=== PATIENT | male | born 1950 | race Caucasian/White ===

== ENCOUNTER 2021-04-10 10:24 | Inpatient (IN) | payer OTHER ==
[~2021-04-10] VITALS: Ht 182.9 cm; Wt 80.1 kg
[~2021-04-10 10:24] MED LIST: AUGMENTIN 875875 MG PO; PREDNISONE20 M1 PO; TESSALON PERLE100 M1 PO; VICODIN 500 MG-1 TAB PO
[2021-04-10 10:32] VITALS: BP 121/69
[2021-04-10 11:29] LABS: HEMATOCRIT 43.3 % (42.0-52.0); LYMPH % 20.8 % (27.0-41.0); MEAN CELL VOLUME 88.4 fl (80.0-94.0); MEAN CORPUSCULAR HGB 30.2 pg (27.0-31.0); MEAN CORPUSCULAR HGB CONC 34.2 g/dl (33.0-37.0); MEAN PLATELET VOLUME 9.9 fl (9.6-12.3); MONO # 0.7 10*3/uL (0.1-1.0); MONO % 13.9 % (3.0-9.0); NEUT # 3.2 10*3/uL (2.3-7.9); NEUT % 64.9 % (47.0-73.0); PLATELET COUNT AUTOMATED 152 10*3/uL (130-400); RED CELL DISTRI WIDTH 13.7 % (0-14.5); WHITE BLOOD COUNT 4.9 10*3/uL (4.8-10.8)
[2021-04-10 11:45] LABS: ALBUMIN 3.5 gm/dl (3.1-4.5); CREATININE 1.56 mg/dL (0.70-1.30); POTASSIUM 3.9 mmol/L (3.5-5.1)
[2021-04-10 11:47] LABS: TOTAL PROTEIN 7.1 gm/dL (6.4-8.2)
[2021-04-10 12:37] VITALS: BP 135/60
[2021-04-10] MEDS ORDERED: CITALOPRAM40 MG PO (13:39)
[2021-04-10] MEDS ORDERED: ATORVASTATIN CA40 M1 PO (13:39)
[2021-04-10] MEDS ORDERED: METFORMIN HYD1000 MG PO (13:40)
[2021-04-10] MEDS ORDERED: LISINOPRIL10 M1 PO (13:40)
[2021-04-10] MEDS ORDERED: NITROGLYCERIN0.4 MG SL (13:40)
[2021-04-10] MEDS ORDERED: PANTOPRAZOLE SO40 MG PO (13:41)
[2021-04-10] MEDS ORDERED: PRAVASTATIN SOD80 MG PO (13:41)
[2021-04-10 15:00] VITALS: BP 118/59
[2021-04-10 17:31] VITALS: BP 115/55
[2021-04-10 19:44] VITALS: BP 115/68
[2021-04-10 21:46] VITALS: BP 110/54
[2021-04-11] VITALS (8 sets, daily range): BP systolic 109–132; BP diastolic 58–68
[2021-04-11 03:52] LABS: HEMATOCRIT 42.4 % (42.0-52.0); LYMPH # 0.9 10*3/uL (1.3-4.4); LYMPH % 33.6 % (27.0-41.0); MEAN CELL VOLUME 89.8 fl (80.0-94.0); MEAN CORPUSCULAR HGB 30.3 pg (27.0-31.0); MEAN CORPUSCULAR HGB CONC 33.7 g/dl (33.0-37.0); MEAN PLATELET VOLUME 10.1 fl (9.6-12.3); MONO # 0.4 10*3/uL (0.1-1.0); MONO % 15.7 % (3.0-9.0); NEUT # 1.4 10*3/uL (2.3-7.9); PLATELET COUNT AUTOMATED 140 10*3/uL (130-400); RED BLOOD COUNT 4.72 10*6/uL (4.50-5.90); RED CELL DISTRI WIDTH 13.5 % (0-14.5); WHITE BLOOD COUNT 2.8 10*3/uL (4.8-10.8)
[2021-04-11 04:09] LABS: ALKALINE PHOSPHATASE 82 U/L (45-117); BUN 21 mg/dl (7-24); CHLORIDE 107 mmol/L (98-107); CHOLESTEROL 98 mg/dL (<200); CREATININE 1.12 mg/dL (0.70-1.30); LDH 244 U/L (87-241); LDL CHOLESTEROL 45 mg/dL (9-159); POTASSIUM 4.7 mmol/L (3.5-5.1); SGOT/AST 29 IU/L (3-35); SGPT/ALT 23 U/L (12-78); SODIUM 138 mmol/L (136-145); TOTAL PROTEIN 6.4 gm/dL (6.4-8.2); TRIGLYCERIDES 96 mg/dl (<150)
[2021-04-11] MEDS ORDERED: PIOGLITAZONE HC15 MG PO (05:58)
[2021-04-11] MEDS ORDERED: IMDUR SA30 MG PO (05:59)
[2021-04-11] MEDS ORDERED: ASPIRIN CHEWABL81 MG PO (06:00)
[2021-04-11] MEDS ORDERED: B12 ACTIVE1000 MCG PO (06:01)
[2021-04-12] VITALS: BP 108/62
[2021-04-12 06:17] LABS: BASO % 0.3 % (0.0-1.0); HEMATOCRIT 40.2 % (42.0-52.0); LYMPH % 24.4 % (27.0-41.0); MEAN CELL VOLUME 90.1 fl (80.0-94.0); MEAN CORPUSCULAR HGB 29.8 pg (27.0-31.0); MEAN CORPUSCULAR HGB CONC 33.1 g/dl (33.0-37.0); MEAN PLATELET VOLUME 10.7 fl (9.6-12.3); MONO # 0.4 10*3/uL (0.1-1.0); MONO % 9.1 % (3.0-9.0); NEUT # 2.6 10*3/uL (2.3-7.9); NEUT % 65.7 % (47.0-73.0); PLATELET COUNT AUTOMATED 140 10*3/uL (130-400); RED BLOOD COUNT 4.46 10*6/uL (4.50-5.90); RED CELL DISTRI WIDTH 13.5 % (0-14.5); WHITE BLOOD COUNT 3.9 10*3/uL (4.8-10.8)
[2021-04-12 06:27] LABS: ALBUMIN 2.6 gm/dl (3.1-4.5); BUN 23 mg/dl (7-24); CHLORIDE 107 mmol/L (98-107); CREATININE 1.01 mg/dL (0.70-1.30); POTASSIUM 4.3 mmol/L (3.5-5.1); SGOT/AST 23 IU/L (3-35); SGPT/ALT 19 U/L (12-78); SODIUM 138 mmol/L (136-145); TOTAL PROTEIN 5.8 gm/dL (6.4-8.2)
[2021-04-12 06:31] LABS: ALKALINE PHOSPHATASE 71 U/L (45-117); CPK 89 U/L (39-308)
[2021-04-12 08:00] VITALS: BP 113/77
[2021-04-12 12:00] VITALS: BP 118/52
[2021-04-12 16:00] VITALS: BP 128/70
[2021-04-12 20:00] VITALS: BP 113/51
[2021-04-13] VITALS: BP 128/66
[2021-04-13 06:23] LABS: BASO % 0.2 % (0.0-1.0); HEMATOCRIT 40.5 % (42.0-52.0); LYMPH % 22.4 % (27.0-41.0); MEAN CELL VOLUME 89.8 fl (80.0-94.0); MEAN CORPUSCULAR HGB 29.9 pg (27.0-31.0); MEAN CORPUSCULAR HGB CONC 33.3 g/dl (33.0-37.0); MEAN PLATELET VOLUME 10.3 fl (9.6-12.3); MONO # 0.4 10*3/uL (0.1-1.0); MONO % 8.7 % (3.0-9.0); PLATELET COUNT AUTOMATED 163 10*3/uL (130-400); RED BLOOD COUNT 4.51 10*6/uL (4.50-5.90); RED CELL DISTRI WIDTH 13.4 % (0-14.5); WHITE BLOOD COUNT 4.4 10*3/uL (4.8-10.8)
[2021-04-13 06:24] LABS: CHLORIDE 108 mmol/L (98-107); POTASSIUM 4.7 mmol/L (3.5-5.1); SODIUM 139 mmol/L (136-145)
[2021-04-13 06:41] LABS: ALBUMIN 2.6 gm/dl (3.1-4.5); ALKALINE PHOSPHATASE 72 U/L (45-117); BUN 22 mg/dl (7-24); CREATININE 0.96 mg/dL (0.70-1.30); SGOT/AST 17 IU/L (3-35); SGPT/ALT 17 U/L (12-78); TOTAL PROTEIN 5.8 gm/dL (6.4-8.2)
[2021-04-13 07:53] LABS: CPK 50 U/L (39-308)
[2021-04-13 08:00] VITALS: BP 145/76
[2021-04-13] MEDS ORDERED: DECADRON6 M1 PO (09:53)
== END 2021-04-13 14:10 | disposition home or self-care (01) | DRG 177 ==
LOC: ED 10:24 → 4E 13:39 → EDHOLD 13:39 → 4E 18:06 → EDHOLD 18:06 → 4E 04-11 04:28
PROVIDERS: Internal Medicine; Nurse Practitioner Family; ADMIT Family Medicine; ATTEND Family Medicine
PROC: XW033E5 Introduction of Remdesivir Anti-infective into Peripheral Vein, Percutaneous Approach, New Technology Group 5 (ICD-10-PCS; principal; 2021-04-10)
DX: U07.1 COVID-19 (principal); J12.82 Pneumonia due to coronavirus disease 2019; J96.01 Acute respiratory failure with hypoxia; E87.1 Hypo-osmolality and hyponatremia; R74.01 Elevation of levels of liver transaminase levels; I10 Essential (primary) hypertension; F32.9 Major depressive disorder, single episode, unspecified; E78.5 Hyperlipidemia, unspecified; E11.65 Type 2 diabetes mellitus with hyperglycemia; Z79.899 Other long term (current) drug therapy

== ENCOUNTER 2022-04-28 23:03 | Emergency (ER) | payer OTHER ==
[~2022-04-28] VITALS: Ht 182.8 cm; Wt 87.1 kg
[~2022-04-28 23:03] MED LIST changes: +ASPIRIN CHEWABL81 MG PO; +ATORVASTATIN CA40 M1 PO; +B12 ACTIVE1000 MCG PO; +CITALOPRAM40 MG PO; +DECADRON6 M1 PO; +IMDUR SA30 MG PO; +LISINOPRIL10 M1 PO; +METFORMIN HYD1000 MG PO; +NITROGLYCERIN0.4 MG SL; +PANTOPRAZOLE SO40 MG PO; +PIOGLITAZONE HC15 MG PO; +PRAVASTATIN SOD80 MG PO
== END 2022-04-28 23:48 | disposition home or self-care (01) ==
LOC: ED 23:03
DX: T16.2XXA Foreign body in left ear, initial encounter (principal); Z90.89 Acquired absence of other organs; Z98.890 Other specified postprocedural states; I10 Essential (primary) hypertension; F32.A Depression, unspecified; X58.XXXA Exposure to other specified factors, initial encounter; Y93.89 Activity, other specified; Y92.009 Unspecified place in unspecified non-institutional (private) residence as the place of occurrence of the external cause; Y99.8 Other external cause status

== ENCOUNTER 2023-10-31 10:28 | Inpatient (IN) | payer OTHER ==
[~2023-10-31] VITALS: Ht 182.8 cm; Wt 86.2 kg
[2023-10-31 10:43] VITALS: BP 161/97
[2023-10-31] MEDS ORDERED: NITROGLYCERIN0.4 MG SL (10:47)
[2023-10-31] MEDS ORDERED: INVOKANA300 M1 PO (10:47)
[2023-10-31] MEDS ORDERED: BUPROPION HYDR150 M3 PO (10:47)
[2023-10-31] MEDS ORDERED: LORAZEPAM0.5 M1 PO (10:47)
[2023-10-31] MEDS ORDERED: CLOPIDOGREL75 MG PO (10:48)
[2023-10-31] MEDS ORDERED: ALDACTONE25 MG PO (10:48)
[2023-10-31] MEDS ORDERED: METOPROLOL SUCC25 M2 PO (10:48)
[2023-10-31] MEDS ORDERED: FARXIGA10 M1 PO (10:48)
[2023-10-31] MEDS ORDERED: ENTRESTO 24 MG1 EACH PO (10:49)
[2023-10-31] MEDS ORDERED: SODIUM CHLORIDE 0.9% 1,000 ML IV ONE ×2 (11:10→16:00)
[2023-10-31 11:35] LABS: BASO % 0.4 % (0.0-1.0); EOS % 0.5 % (1.0-4.0); LYMPH # 2.3 10*3/uL (1.3-4.4); LYMPH % 30.2 % (27.0-41.0); MEAN CELL VOLUME 91.5 fl (80.0-94.0); MEAN CORPUSCULAR HGB 30.3 pg (27.0-31.0); MEAN CORPUSCULAR HGB CONC 33.1 g/dl (33.0-37.0); MEAN PLATELET VOLUME 10.2 fl (9.6-12.3); MONO # 0.5 10*3/uL (0.1-1.0); MONO % 6.8 % (3.0-9.0); NEUT # 4.6 10*3/uL (2.3-7.9); NEUT % 61.6 % (47.0-73.0); PLATELET COUNT AUTOMATED 198 10*3/uL (130-400); RED BLOOD COUNT 4.59 10*6/uL (4.50-5.90); RED CELL DISTRI WIDTH 13.4 % (0-14.5); WHITE BLOOD COUNT 7.5 10*3/uL (4.8-10.8)
[2023-10-31 11:49] LABS: ACT PARTIAL THROMBO TIME 25.1 SECONDS (20.0-32.1)
[2023-10-31 11:56] LABS: ALKALINE PHOSPHATASE 75 U/L (46-116); BUN 9 mg/dl (9-23); CHLORIDE 107 mmol/L (98-107); LIPASE 44 U/L (12-53); POTASSIUM 3.3 mmol/L (3.4-5.1); SGPT/ALT 15 U/L (5-49); TOTAL PROTEIN 6.5 gm/dL (6.0-8.0)
[2023-10-31 12:18] LABS: BILIRUBIN Negative (Negative); BLOOD Negative (Negative); CLARITY Clear (Clear); COLOR Yellow (Yellow); GLUCOSE Trace (Negative); KETONE 1+ (Negative); LEUKO ESTERASE Trace (Negative); NITRITE Negative (Negative); PH 5.5 (4.5-8.0); SPECIFIC GRAVITY 1.025 (1.001-1.030)
[2023-10-31] MEDS ORDERED: MAGNESIUM SULFATE 100 ML IV ONE (12:30)
[2023-10-31 12:32] LABS: MUCOUS 1+; RBC 0-2 rbc/hpf (0-2)
[2023-10-31] MEDS ORDERED: POTASSIUM CHLORIDE 20 MEQ TAB PO ONE (14:25)
[2023-10-31] MEDS ORDERED: BISACODYL 5 MG TAB PO PRN (15:05)
[2023-10-31] MEDS ORDERED: BISACODYL 10 MG SUPP R PRN (15:05)
[2023-10-31] MEDS ORDERED: ACETAMINOPHEN 650 MG SUPP R PRN (15:05)
[2023-10-31] MEDS ORDERED: ACETAMINOPHEN 325 MG TAB PO PRN (15:05)
[2023-10-31] MEDS ORDERED: Magnesium Hydroxide 30 ML UDC PO PRN (15:05)
[2023-10-31] MEDS ORDERED: DEXTROSE 10 % IN WATER 250 ML IV PRN (16:15)
[2023-10-31] MEDS ORDERED: INSULIN LISPRO 1 UNIT/0.01 ML SQ SCH (16:30)
[2023-10-31 18:03] LABS: ALKALINE PHOSPHATASE 78 U/L (46-116); BUN 11 mg/dl (9-23); CHLORIDE 108 mmol/L (98-107); POTASSIUM 3.5 mmol/L (3.4-5.1); SGPT/ALT 15 U/L (5-49); TOTAL PROTEIN 6.3 gm/dL (6.0-8.0)
[2023-10-31 19:05] VITALS: BP 164/86
[2023-10-31] MEDS ORDERED: MAGNESIUM SULFATE 50 ML IV ONE (19:10)
[2023-11-01 03:23] VITALS: BP 168/96
[2023-11-01 04:13] VITALS: BP 158/86
[2023-11-01 05:55] VITALS: BP 167/82
[2023-11-01 06:53] LABS: ALKALINE PHOSPHATASE 75 U/L (46-116); BUN 9 mg/dl (9-23); CHLORIDE 109 mmol/L (98-107); CHOLESTEROL 116 mg/dL (<200); LDL CHOLESTEROL 56 mg/dL (9-159); POTASSIUM 3.9 mmol/L (3.4-5.1); SGPT/ALT 13 U/L (5-49); TOTAL PROTEIN 6.1 gm/dL (6.0-8.0); TRIGLYCERIDES 173 mg/dl (<150)
[2023-11-01 06:55] LABS: BASO % 0.1 % (0.0-1.0); EOS % 0.4 % (1.0-4.0); HEMATOCRIT 39.1 % (42.0-52.0); LYMPH # 1.8 10*3/uL (1.3-4.4); LYMPH % 25.6 % (27.0-41.0); MEAN CELL VOLUME 90.9 fl (80.0-94.0); MEAN CORPUSCULAR HGB 30.7 pg (27.0-31.0); MEAN CORPUSCULAR HGB CONC 33.8 g/dl (33.0-37.0); MEAN PLATELET VOLUME 10.3 fl (9.6-12.3); MONO # 0.5 10*3/uL (0.1-1.0); MONO % 7.8 % (3.0-9.0); NEUT # 4.5 10*3/uL (2.3-7.9); NEUT % 65.8 % (47.0-73.0); PLATELET COUNT AUTOMATED 192 10*3/uL (130-400); RED CELL DISTRI WIDTH 13.5 % (0-14.5); WHITE BLOOD COUNT 6.8 10*3/uL (4.8-10.8)
[2023-11-01 07:19] LABS: VITAMIN D, 25-HYDROXY 16.4 ng/mL (30-100)
[2023-11-01 09:15] VITALS: BP 175/94
[2023-11-01] MEDS ORDERED: Enoxaparin Sodium 40 MG/0.4 ML SYR SC SCH (10:00)
[2023-11-01] MEDS ORDERED: Cholecalciferol 2,000 UNIT TABLET (50 MCG) PO SCH (10:00)
[2023-11-01] MEDS ORDERED: SACUBITRIL/VALSARTAN 24 MG-26 MG TABLET PO SCH (10:50)
[2023-11-01] MEDS ORDERED: Clopidogrel Hydrogen Sulfate 75 MG TAB PO SCH (10:50)
[2023-11-01] MEDS ORDERED: ISOSORBIDE MONONITRATE 30 MG TAB PO SCH (10:50)
[2023-11-01] MEDS ORDERED: METOPROLOL SUCCINATE XR 25 MG TAB PO SCH (10:55)
[2023-11-01 12:00] VITALS: BP 142/63
[2023-11-01] MEDS ORDERED: MAGNESIUM OXID400 MG PO (12:24)
[2023-11-01] MEDS ORDERED: VITAMIN D350 MCG PO (12:24)
== END 2023-11-01 12:20 | disposition home or self-care (01) | DRG 641 ==
LOC: ED 10:28 → EDHOLD 14:54
PROVIDERS: Internal Medicine; Student in an Organized Health Care Education/Training Program; ADMIT Internal Medicine; ATTEND Internal Medicine
DX: E87.6 Hypokalemia (principal); E87.20 Acidosis, unspecified; E83.42 Hypomagnesemia; I25.10 Atherosclerotic heart disease of native coronary artery without angina pectoris; I10 Essential (primary) hypertension; E11.65 Type 2 diabetes mellitus with hyperglycemia; D64.9 Anemia, unspecified; R82.4 Acetonuria; E86.0 Dehydration; E83.51 Hypocalcemia; E78.5 Hyperlipidemia, unspecified; F32.A Depression, unspecified; Z66 Do not resuscitate; I25.2 Old myocardial infarction; Z95.1 Presence of aortocoronary bypass graft; Z90.49 Acquired absence of other specified parts of digestive tract; Z86.73 Personal history of transient ischemic attack (TIA), and cerebral infarction without residual deficits; Z79.899 Other long term (current) drug therapy; Z79.01 Long term (current) use of anticoagulants; Z79.2 Long term (current) use of antibiotics; Z83.3 Family history of diabetes mellitus; Z80.8 Family history of malignant neoplasm of other organs or systems

== ENCOUNTER 2024-05-06 10:44 | Emergency (ER) | payer OTHER ==
[~2024-05-06] VITALS: Ht 182.8 cm; Wt 82.6 kg
[~2024-05-06 10:44] MED LIST changes: +ALDACTONE25 MG PO; +BUPROPION HYDR150 M3 PO; +CLOPIDOGREL75 MG PO; +ENTRESTO 24 MG1 EACH PO; +FARXIGA10 M1 PO; +INVOKANA300 M1 PO; +LORAZEPAM0.5 M1 PO; +MAGNESIUM OXID400 MG PO; +METOPROLOL SUCC25 M2 PO; +VITAMIN D350 MCG PO
[2024-05-06] MEDS ORDERED: NEO/POLYMYX B SULF/DEXAMETH 200 DRP BOT OT ONE (11:55)
== END 2024-05-06 12:00 | disposition home or self-care (01) ==
LOC: ED 10:44
DX: T16.1XXA Foreign body in right ear, initial encounter (principal); H60.11 Cellulitis of right external ear; I10 Essential (primary) hypertension; E78.00 Pure hypercholesterolemia, unspecified; Z98.890 Other specified postprocedural states; W44.8XXA Other foreign body entering into or through a natural orifice, initial encounter; Y93.89 Activity, other specified; Y92.89 Other specified places as the place of occurrence of the external cause; Y99.8 Other external cause status

== ENCOUNTER 2024-05-30 20:07 | Emergency (ER) | payer MEDICARE, MEDICAID ==
[~2024-05-30] VITALS: Ht 182.8 cm; Wt 83.9 kg
[2024-05-30] MEDS ORDERED: INSULIN REGULAR, HUMAN 1 UNIT/0.01 ML IV ONE ×2 (20:15)
[2024-05-30] MEDS ORDERED: SODIUM CHLORIDE 0.9% 1,000 ML IV ONE ×2 (20:15)
[2024-05-30 20:28] LABS: BASO % 0.3 % (0.0-1.0); EOS # 0.1 10*3/uL (0.0-0.4); EOS % 0.7 % (1.0-4.0); HEMATOCRIT 40.9 % (42.0-52.0); MEAN CELL VOLUME 89.1 fl (80.0-94.0); MEAN CORPUSCULAR HGB 29.6 pg (27.0-31.0); MEAN CORPUSCULAR HGB CONC 33.3 g/dl (33.0-37.0); MEAN PLATELET VOLUME 10.3 fl (9.6-12.3); MONO # 0.7 10*3/uL (0.1-1.0); NEUT # 4.1 10*3/uL (2.3-7.9); NEUT % 52.8 % (47.0-73.0); PLATELET COUNT AUTOMATED 237 10*3/uL (130-400); RED BLOOD COUNT 4.59 10*6/uL (4.50-5.90); RED CELL DISTRI WIDTH 12.8 % (0-14.5); WHITE BLOOD COUNT 7.7 10*3/uL (4.8-10.8)
[2024-05-30 21:25] LABS: POTASSIUM 4.9 mmol/L (3.4-5.1)
== END 2024-05-31 00:13 | disposition home or self-care (01) ==
LOC: ED 20:07
PROVIDERS: Internal Medicine
DX: E11.65 Type 2 diabetes mellitus with hyperglycemia (principal); I12.9 Hypertensive chronic kidney disease with stage 1 through stage 4 chronic kidney disease, or unspecified chronic kidney disease; E11.22 Type 2 diabetes mellitus with diabetic chronic kidney disease; N18.32 Chronic kidney disease, stage 3b; Z79.899 Other long term (current) drug therapy; Z79.82 Long term (current) use of aspirin; Z98.890 Other specified postprocedural states; Z95.5 Presence of coronary angioplasty implant and graft

== ENCOUNTER 2025-01-10 20:16 | Emergency (ER) | payer OTHER, MEDICAID ==
[~2025-01-10] VITALS: Wt 87.1 kg
[~2025-01-10 20:16] MED LIST changes: +JARDIANCE10 MG PO; +LANTUS SOL100 UNIT/1 SQ; +MIRTAZAPINE15 M2 PO
[2025-01-10] MEDS ORDERED: Na Phos, Dibasic/Na Phos, Mo 1 EA BOT R ONE (22:10)
== END 2025-01-10 22:16 | disposition home or self-care (01) ==
LOC: ED 20:16
DX: K59.00 Constipation, unspecified (principal); I25.2 Old myocardial infarction; F32.A Depression, unspecified; E11.9 Type 2 diabetes mellitus without complications; I11.0 Hypertensive heart disease with heart failure; I50.9 Heart failure, unspecified; E78.00 Pure hypercholesterolemia, unspecified